=== PATIENT | female | born 1990 | race Caucasian/White ===

== ENCOUNTER 2018-02-08 11:45 | Emergency (ER) | payer BC ==
[~2018-02-08] VITALS: Ht 157.5 cm; Wt 46.4 kg
[2018-02-08] MEDS ORDERED: antidepressant PO (12:42)
[2018-02-08] MEDS ORDERED: ALPR-475 PO (12:42)
[2018-02-08] MEDS ORDERED: ALPR3TAB PO (12:42)
[2018-02-08] MEDS ORDERED: TOPI50TA35 PO (12:42)
[2018-02-08] MEDS ORDERED: ARIP2TAB2 PO (12:42)
[2018-02-08 12:55] LABS: BASOPHILS # (AUTO) 0.01 x10^3/uL (0-0.1); BASOPHILS % (AUTO) 0 % (0-1); EOSINOPHILS # (AUTO) 0.04 x10^3/uL (0-0.4); EOSINOPHILS % (AUTO) 1 % (1-7); LYMPHOCYTES # (AUTO) 1.85 x10^3/uL (1-3.4); LYMPHOCYTES % (AUTO) 29 % (22-44); MD NO; MEAN CORPUSCULAR HEMOGLOBIN 32.8 pg (27.0-34.8); MEAN CORPUSCULAR HGB CONC 33.6 g/dL (32.4-35.8); MEAN CORPUSCULAR VOLUME 97.8 fL (80-100); MEAN PLATELET VOLUME 7.8 fL (7.4-10.4); MONOCYTES # (AUTO) 0.48 x10^3/uL (0.2-0.8); MONOCYTES % (AUTO) 8 % (2-9); NEUTROPHILS # (AUTO) 4.04 x10^3/uL (1.8-6.8); NEUTROPHILS % (AUTO) 63 % (42-75); PLATELET COUNT 333 x10^3/uL (130-400); RED BLOOD COUNT 4.48 x10^6/uL (3.82-5.3)
[2018-02-08 13:06] LABS: ALBUMIN 3.5 g/dL (3.4-5.0); ANION GAP 6 mmol/L (5-15); CALCIUM 8.8 mg/dL (8.5-10.1); CHLORIDE 108 mmol/L (98-107); CREATININE 0.47 mg/dL (0.55-1.02)
[2018-02-08 13:09] LABS: MICROSCOPIC INDICATED
[2018-02-08 13:15] LABS: CULTURE INDICATED? YES
[2018-02-08] MEDS ORDERED: HYDROcodone/APAP 5/325 TABLET ONE (13:23)
[2018-02-08] MEDS ORDERED: HYDROcodone/APAP 5/325 TABLET PO ONE (13:30)
[2018-02-08] MEDS ORDERED: CEFDINIR 300 MG CAPSULE PO ONE (14:00)
[2018-02-08] MEDS ORDERED: CEFDINIR 300 MG CAPSULE ONE (14:01)
[2018-02-08 14:17] VITALS: BP 104/67
== END 2018-02-08 14:19 | disposition home or self-care (01) ==
LOC: ED 13:42
DX: N39.0 Urinary tract infection, site not specified (principal); J45.909 Unspecified asthma, uncomplicated; F17.200 Nicotine dependence, unspecified, uncomplicated
CPT/HCPCS: 36415; 80048; 81001; 82040; 84703; 85025; 87086; 99284